=== PATIENT | female | born 1935 | race Caucasian/White ===

== ENCOUNTER 2016-11-02 16:05 | Emergency (ER) | payer OTHER ==
[~2016-11-02] VITALS: Ht 147.3 cm; Wt 95.7 kg
[~2016-11-02 16:05] MED LIST: APAP500 PO; ASPIR 8181 MG PO; AZELASTINE137 MCG/0. NASAL; BIOTIN2500 MCG PO; BLACK COHOSH40 MG PO; BUSPIRONE HCL10 MG PO; CLARITIN10 MG PO; COLACE100 MG PO; CRANBERRY 4001 EAC1 PO; DITROPAN XL10 M1 PO; FENOFIBRATE160 MG PO; FLONASE 0.05%50 MCG NASAL; IRON325 PO; KLOR-CON 1010 MEQ PO; LASIX 20 MG TAB20 MG PO; LEVOTHYROXINE 0.1 MG PO; LYRICA 75 MG CA75 MG PO; MAGNESIUM250 MG PO; MUCINEX TA600 MG/TA2 PO; MUSCLE RUB90 GM TOP; NITROGLYCERIN0.4 MG SUBLING; OCUVITE LUTEIN1 EAC1 PO; OMEPRAZOLE20 M2 PO; PROLOPRIM100 MG PO; SINGULAIR 10 MG10 MG PO; SUPER B-50 COM1 EACH PO; SYSTANE ULTRA 010 ML OPHTHALMIC; TRAZODONE HCL50 MG PO; UNICOMPLEX M TA1 TA1 PO; VENTOLIN HFA 1818 GM INH; VITAMIN B-12500 MCG PO; VITAMIN D1000 UNI1 PO; ZOCOR20 MG PO
[2016-11-02 19:19] VITALS: BP 131/63
== END 2016-11-02 19:20 | disposition home or self-care (01) ==
LOC: ER 16:05
DX: S01.112A Laceration without foreign body of left eyelid and periocular area, initial encounter (principal); J45.909 Unspecified asthma, uncomplicated; Z85.3 Personal history of malignant neoplasm of breast; I50.9 Heart failure, unspecified; E03.9 Hypothyroidism, unspecified; K21.9 Gastro-esophageal reflux disease without esophagitis; F41.9 Anxiety disorder, unspecified; F32.9 Major depressive disorder, single episode, unspecified; M79.7 Fibromyalgia; M19.90 Unspecified osteoarthritis, unspecified site; E78.00 Pure hypercholesterolemia, unspecified; Z88.8 Allergy status to other drugs, medicaments and biological substances; Z88.1 Allergy status to other antibiotic agents; W01.0XXA Fall on same level from slipping, tripping and stumbling without subsequent striking against object, initial encounter; Y93.89 Activity, other specified; Y92.89 Other specified places as the place of occurrence of the external cause; Y99.9 Unspecified external cause status

== ENCOUNTER 2017-12-05 11:13 | Emergency (ER) | payer OTHER ==
[~2017-12-05] VITALS: Ht 149.9 cm; Wt 94.8 kg
--- NOTE | ~2017-12-05 | EKG ---
[facility] [address] [place] [address] ELECTROCARDIOGRAM REPORT Name: DEBBIE MENSAH Room #: [facility]#: [id number] Admission: 12/05/17 Attend Phys: Discharge: Date of : 37 Report #: [id number] THIS REPORT FOR: //name// [facility] ED Test Date: 2017-12-05 Test Time: 12:33:54 Pat Name: DEBBIE MENSAH Department: Room: Gender: F Rolling Machine Operator: : [id number] Requested By: Melba Garber Order Number: [id number] MD: Austin Garduno Measurements Intervals [place] Rate: 70 P: 49 MO: 293 QRS: -13 QRSD: 89 T: 99 QT: 397 QTc: 429 Interpretive Statements Sinus rhythm Prolonged MO interval Probable LVH with secondary repol abnrm Inferior infarct, old Baseline wander in lead(s) V1,V3 No previous ECG available for comparison Electronically Signed On 12-05-2017 13:01:24 CDT by Austin Garduno [email or web address] <ELECTRONICALLY SIGNED> By: Austin Garduno MD 12/05/17 1301 1233 1233 MD DILIA Miramontes
[2017-12-05 11:54] LABS: URINE BILIRUBIN NEGATIVE (Negative); URINE BLOOD NEGATIVE (Negative); URINE CLARITY CLEAR; URINE COLOR YELLOW; URINE GLUCOSE-RANDOM* NEGATIVE (Negative); URINE KETONES NEGATIVE (Negative); URINE LEUKOCYTES-REFLEX NEGATIVE (Negative); URINE NITRITE-REFLEX NEGATIVE (Negative); URINE PROTEIN (DIPSTICK) NEGATIVE (Negative); URINE UROBILINOGEN 0.2 E.U./dl (0.2-1.0)
[2017-12-05 12:41] LABS: ABSOLUTE NEUTROPHILS 4.7 thou/uL (1.4-8.2); BASOPHILS 0.6 % (0.0-2.0); EOSINOPHILS 2.2 % (0.0-3.0); HEMATOCRIT 33.8 % (37.0-47.0); HEMOGLOBIN 11.2 gm/dL (12.0-15.0); LYMPHOCYTES 12.7 % (24.0-44.0); MCHC 33.2 g/dL (28.0-37.0); MCV 81.4 fL (80.0-100.0); PLATELET COUNT 279 thou/uL (150-400); POLYS 76.5 % (36.0-66.0); RBC 4.16 mil/uL (4.20-5.00); RDW 14.5 % (10.5-14.5); WBC 6.1 thou/uL (4.0-11.0)
[2017-12-05 12:56] LABS: ANION GAP 7 mmol/L (7-16); BUN 26 mg/dL (7-18); CALCIUM 10.5 mg/dL (8.5-10.1); CHLORIDE 99 mmol/L (98-107); CO2 27 mmol/L (21-32); CREATININE 0.9 mg/dL (0.6-1.0); GLUCOSE 103 mg/dL (74-106); POTASSIUM 4.7 mmol/L (3.5-5.1); SODIUM 133 mmol/L (136-145)
[2017-12-05 13:01] LABS: ALBUMIN 3.9 g/dL (3.4-5.0); SGOT 19 U/L (15-37); SGPT 18 U/L (30-65); TOTAL BILIRUBIN 0.5 mg/dL (<0.1-1.0); TOTAL PROTEIN 7.3 g/dL (6.4-8.2); TROPONIN-I < 0.04 ng/mL (<0.06)
[2017-12-05] MEDS ORDERED: ACETAMINOPHEN-1 EAC1 PO (13:28)
[2017-12-05 15:20] VITALS: BP 162/67
== END 2017-12-05 15:29 ==
LOC: ER 11:13
PROVIDERS: Physician Assistant
DX: S00.03XA Contusion of scalp, initial encounter (principal); M25.511 Pain in right shoulder; M25.512 Pain in left shoulder; R53.1 Weakness; J45.909 Unspecified asthma, uncomplicated; I50.9 Heart failure, unspecified; E03.9 Hypothyroidism, unspecified; F41.9 Anxiety disorder, unspecified; F32.9 Major depressive disorder, single episode, unspecified; E78.00 Pure hypercholesterolemia, unspecified; M19.90 Unspecified osteoarthritis, unspecified site; Z85.3 Personal history of malignant neoplasm of breast; Z88.1 Allergy status to other antibiotic agents; Z88.8 Allergy status to other drugs, medicaments and biological substances; W18.39XA Other fall on same level, initial encounter; Y92.89 Other specified places as the place of occurrence of the external cause; Y93.89 Activity, other specified; Y99.8 Other external cause status